=== PATIENT | male | born 1975 ===

== ENCOUNTER 2017-07-06 12:44 | Outpatient (CLI) | payer BC | END 2017-07-06 12:45 | disposition home or self-care (01) | LOC: BICRAD 12:44 | PROVIDERS: ATTEND Family Medicine | DX: M79.672 Pain in left foot (principal) ==

== ENCOUNTER 2019-10-22 11:15 | Outpatient (CLI) | payer BC | END 2019-10-22 11:16 | disposition home or self-care (01) | PROVIDERS: ATTEND Family Medicine | DX: Z82.49 Family history of ischemic heart disease and other diseases of the circulatory system (principal) | CPT/HCPCS: 93017 ==